=== PATIENT | male | born 1955 ===

== ENCOUNTER 2020-09-18 05:35 | Day surgery (SDC) | payer OTHER ==
[~2020-09-18 05:35] MED LIST: LEVO-T50 MCG PO
[2020-09-18] MEDS ORDERED: PERCOCET 5-3251 EACH PO (09:27)
[2020-09-18] MEDS ORDERED: MIRALAX17 GM PO (09:28)
[2020-09-18] MEDS ORDERED: NEURONTIN800 MG PO (09:28)
[2020-09-18] MEDS ORDERED: SURFAK240 M1 PO (09:28)
== END 2020-09-18 14:05 | disposition home or self-care (01) ==
LOC: CIR.AMB 05:35
PROVIDERS: ATTEND Surgery
DX: K43.0 Incisional hernia with obstruction, without gangrene (principal); K42.0 Umbilical hernia with obstruction, without gangrene; Z20.822 Contact with and (suspected) exposure to COVID-19

== ENCOUNTER 2020-09-24 20:19 | Emergency (ER) | payer OTHER ==
[~2020-09-24] VITALS: Ht 175.3 cm; Wt 88.0 kg
[~2020-09-24 20:19] MED LIST changes: +MIRALAX17 GM PO; +NEURONTIN800 MG PO; +PERCOCET 5-3251 EACH PO; +SURFAK240 M1 PO
== END 2020-09-25 00:05 | disposition home or self-care (01) ==
LOC: ER 20:19
DX: K91.841 Postprocedural hemorrhage of a digestive system organ or structure following other procedure (principal)